=== PATIENT | male | born 1985 | race African-American/Black ===

== ENCOUNTER 2023-04-23 05:22 | Emergency (ER) | payer MEDICAID ==
[~2023-04-23] VITALS: Ht 193 cm; Wt 111.4 kg
[2023-04-23 06:22] VITALS: BP 137/91; PULSE 81; RESP 18; O2SAT 99
== END 2023-04-23 09:01 | disposition home or self-care (01) ==
LOC: ER 05:23
DX: F20.9 Schizophrenia, unspecified (principal)
CPT/HCPCS: 99282